=== PATIENT | female | born 1970 | race Caucasian/White ===

== ENCOUNTER 2023-01-03 10:39 | Emergency (ER) | payer SELFPAY ==
[~2023-01-03] VITALS: Ht 152.4 cm; Wt 67.6 kg
[2023-01-03 10:44] VITALS: BP 166/95
--- NOTE | 2023-01-03 10:48 | NUR ---
GROUND LEVEL TRIP AND FALL LAST NIGHT, NOW PRESENTING WITH LEFT HAND PAIN (10/10) AND SWELLING. PMH: HTN
--- NOTE | 2023-01-03 10:50 | NUR ---
AMBULATED TO BED 11
--- NOTE | 2023-01-03 10:56 | NUR ---
52 Y/O FEMALE BIB SELF C/O LEFT WRIST/HAND PAIN AND UPPER BACK PAIN S/P GROUND LEVEL FALL LAST NIGHT. PER PT SHE SLIPPED AND CUSHIONED HER FALL WITH HER LEFT HAND. NOTED SWELLING AND BRUISING ON THE LEFT HAND. DENIES HITTING HEAD. NKA PMH: HTN
[2023-01-03] MEDS ORDERED: HYDROcodone/APAP 5/325 MG 1 TAB TAB PO ONE (11:05)
[2023-01-03] MEDS ORDERED: BUPIVACAINE-MPF 0.25% 30 ML VIAL INJ ONE (12:30)
--- NOTE | 2023-01-03 12:47 | NUR ---
md galvez at bedside for procedure
[2023-01-03 13:00] VITALS: BP 163/81
[2023-01-03] MEDS ORDERED: KETOROLAC 30 MG/ML VIAL IM ONE (13:45)
[2023-01-03] MEDS ORDERED: ACET-8905 PO (14:01)
--- NOTE | 2023-01-03 14:12 | NUR ---
Patient discharged with v/s stable. Written and verbal after care instructions ABOUT RADIAL FRACTURE given and explained. Patient alert, oriented and verbalized understanding of instructions. Ambulatory with steady gait. All questions addressed prior to discharge. ID band removed. Patient advised to follow up with PMD. Rx of NORCO 5-325 given. Patient educated on indication of medication including possible reaction and side effects. Opportunity to ask questions provided and answered.
== END 2023-01-03 14:12 | disposition home or self-care (01) ==
LOC: MED 10:39
DX: S52.502A Unspecified fracture of the lower end of left radius, initial encounter for closed fracture (principal); S52.612A Displaced fracture of left ulna styloid process, initial encounter for closed fracture; M53.3 Sacrococcygeal disorders, not elsewhere classified; I10 Essential (primary) hypertension; Z79.891 Long term (current) use of opiate analgesic; W01.0XXA Fall on same level from slipping, tripping and stumbling without subsequent striking against object, initial encounter; Y93.01 Activity, walking, marching and hiking; Y92.89 Other specified places as the place of occurrence of the external cause; Y99.8 Other external cause status
CPT/HCPCS: 25605; 72220; 73090; 73110; 73130; 81025; 96372; 99284; J1885; J3490; Q0092

== ENCOUNTER 2023-01-08 15:25 | Emergency (ER) | payer MEDICAID ==
[~2023-01-08] VITALS: Ht 157.5 cm; Wt 69.9 kg
[~2023-01-08 15:25] MED LIST: ACET-8905 PO
[2023-01-08 15:49] VITALS: BP 152/76
[2023-01-08] MEDS ORDERED: HYDROcodone/APAP 5/325 MG 1 TAB TAB PO ONE (16:05)
--- NOTE | 2023-01-08 16:13 | NUR ---
sugar tong splint applied with 2 leatha wraps. sling applied. + cms
[2023-01-08] MEDS ORDERED: ACET-8905 PO (16:28)
== END 2023-01-08 16:35 | disposition home or self-care (01) ==
LOC: MED 15:25
DX: S52.592D Other fractures of lower end of left radius, subsequent encounter for closed fracture with routine healing (principal); I10 Essential (primary) hypertension; Z79.899 Other long term (current) drug therapy; X58.XXXD Exposure to other specified factors, subsequent encounter
CPT/HCPCS: 99283